=== PATIENT | male | born 1985 | race Caucasian/White ===

== ENCOUNTER 2016-12-12 12:06 | Emergency (ER) | payer BC ==
--- NOTE | 2016-12-12 14:17 | RAD ---
Indication: Foreign body. 2 views of the left forearm demonstrates a radiopaque foreign body in the distal radial aspect of the forearm. IMPRESSION: Radiopaque foreign body in the distal radial aspect of the forearm.
[2016-12-12] MEDS: Morphine INJ* 4 MG/ML 1 ML SYRINGE IM ONE ×2 (15:00→15:02)
[2016-12-12 15:33] VITALS: BP 125/79
--- NOTE | 2016-12-20 09:27 | ED ---
Upper Extremity Pain - HPI Summary HPI Summary: Patient arrives to ED after puncturing his left forearm with a nail from a nail gun. The wound is not bleeding and entry point is less than 1mm. Nail is inside forearm and tip of nail is felt on the dorsum of the arm. He denies pain , is able to feel his fingertips and denies color or temperature changes. Tetanus >10 years old. Denies other injuries. Denies blood thinners. - History of Current Complaint Chief Complaint: EDExtremityUpper Stated Complaint: NAIL GUN INJURY FROM WORK Time Seen by Provider: 12/12/16 12:22 Hx Obtained From: Patient Mechanism Of Injury: Penetrating Trauma - nail from nail gun Timing: Constant Severity Initially: Mild Severity Currently: Mild Pain Location: Forearm Character: Sharp Aggravating Factor(s): Internal/External Rotation Alleviating Factor(s): Nothing Associated Signs & Symptoms: Positive: Negative Related History: Dominant Hand Right - Allergies/Home Medications Allergies/Adverse Reactions: Allergies Allergy/AdvReac Type Severity Reaction Status Date / Time No Known Allergies Allergy Verified 10/13/12 18:41 PMH/Surg Hx/FS Hx/Imm Hx Previously Healthy: Yes Infectious Disease History: No Infectious Disease History: Denies: Traveled Outside the [place] in Last 30 Days - Social History Occupation: Employed Full-time Lives: Alone Alcohol Use: Occasionally Hx Substance Use: Yes Substance Use Type: Reports: Marijuana Hx Tobacco Use: Yes Smoking Status (MU): Light Every Day Tobacco Smoker Do You Chew or Dip Tobacco: No Have You Chewed or Dipped Tobacco in the LAST YEAR: No Review of Systems Constitutional: Negative Cardiovascular: Negative Respiratory: Negative Positive: no symptoms reported, see HPI Musculoskeletal: Negative Positive: Other - small round <1mm puncture wound without bleeding or ecchymosis Neurological: Negative All Other Systems Reviewed And Are Negative: Yes Physical Exam Triage Information Reviewed: Yes Vital Signs On Initial Exam: Initial Vitals Temp Pulse Resp BP Pulse Ox 97.9 F 58 18 138/84 100 12/12/16 12:16 12/12/16 12:16 12/12/16 12:16 12/12/16 12:16 12/12/16 12:16 Vital Signs Reviewed: Yes Appearance: Positive: Well-Appearing, Well-Nourished Skin: Positive: Other - small puncture wound Eyes: Positive: Normal, DARRYL Neck: Positive: Supple, No Lymphadenopathy Respiratory/Lung Sounds: Positive: Clear to Auscultation, Breath Sounds Present Cardiovascular: Positive: Normal Musculoskeletal: Positive: Normal, Strength/ROM Intact Neurological: Positive: Normal, Sensory/Motor Intact, Alert, Oriented to Person Place, Time, Speech Normal Psychiatric: Positive: Normal Procedures - Laceration/Wound Repair 1 Location: upper extremity Description: Stellate Anesthesia: 1.0%, Lido Betadine Prep?: No Laceration/Wound Explored: clean Closure: Single Layer Suture Type: Nylon Number of Sutures: 2 Layer Closure?: No Sterile Dressing Applied?: No Diagnostics - Vital Signs Vital Signs Temp Pulse Resp BP Pulse Ox 12/12/16 15:31 97.7 F 60 15 125/79 12/12/16 14:00 97.9 F 61 15 129/76 99 12/12/16 12:16 97.9 F 58 18 138/84 100 - Laboratory Lab Statement: Any lab studies that have been ordered have been reviewed, and results considered in the medical decision making process. Course/Dx - Course Course Of Treatment: xray shows foreign body in forearm. patient able to move fingers and rotate arm without complications. small .5cm linear incision made with 15 blade approximately .2cm deep. tweezers used to dislodge FB. patient tolerated well. 2 sutures placed. Suture removal in 7 days. - Diagnoses Differential Diagnosis/HQI/PQRI: Positive: Laceration, Other - puncture wound, FB removal Provider Diagnoses: Foreign body forearm Discharge - Discharge Plan Condition: Stable Disposition: HOME Prescriptions: oxyCODONE/Acetamin 5/325 MG* [Percocet 5/325 TAB*] 1 tab PO Q6H PRN #4 tab MDD 4 PRN Reason: Pain Patient Education Materials: Care For Your Stitches (ED) Referrals: No Primary Care Phys,NOPCP [Primary Care Provider] - Additional Instructions: Take ibuprofen 600mg three times daily for pain If pain is not well controlled, take the percoset as needed. If you develop numbness, tingling or temperature change in the arm, come back to the ED. Stitches out in 7 days. Images - Images Full Body (No Head): 1 - small < 1mm puncture wound with small nail tip felt under the skin
== END 2016-12-12 15:31 | disposition home or self-care (01) ==
LOC: ED 12:06
DX: S50.852A Superficial foreign body of left forearm, initial encounter (principal); W29.4XXA Contact with nail gun, initial encounter; Y93.9 Activity, unspecified; Y92.9 Unspecified place or not applicable
CPT/HCPCS: 90715; 96372; 99282; J2270

== ENCOUNTER → 2016-12-13 17:17 | Emergency (ER) | payer BC ==
[~2016-12-13 17:17] MED LIST: Tetan/Diph/Pertus SYR(Tdap)* 0.5 ML SYR(BOOSTRIX) use SYR IM ONE
[2016-12-13 17:49] VITALS: BP 140/76
--- NOTE | 2016-12-13 17:59 | ED ---
Medical Screening - HPI Summary HPI Summary: Patient presents for a tetanus shot for a wound he received yesterday. He presented at this ED and was treated, but the tetanus was not ordered at that time before he left. No other complaints. - History of Current Complaint Chief Complaint: EDGeneral Stated Complaint: TETANUS Time Seen by Provider: 12/13/16 17:34 Associated Signs and Symptoms: Negative PMH/Surg Hx/FS Hx/Imm Hx Previously Healthy: Yes Infectious Disease History: Denies: Traveled Outside the [place] in Last 30 Days - Social History Occupation: Employed Full-time Lives: With Family Alcohol Use: Occasionally Substance Use Type: Reports: Marijuana Smoking Status (MU): Light Every Day Tobacco Smoker Cessation Counseling: Patient Advised to Stop Review of Systems All Other Systems Reviewed And Are Negative: Yes Physical Exam - Summary Physical Exam Summary: No physical exam performed. Triage Information Reviewed: Yes Vital Signs On Initial Exam: Initial Vitals Temp Pulse Resp BP Pulse Ox 97.9 F 66 16 140/76 97 12/13/16 17:48 12/13/16 17:48 12/13/16 17:48 12/13/16 17:48 12/13/16 17:48 Vital Signs Reviewed: Yes Diagnostics - Vital Signs Vital Signs Temp Pulse Resp BP Pulse Ox 12/13/16 17:48 97.9 F 66 16 140/76 97 - Laboratory Lab Statement: Any lab studies that have been ordered have been reviewed, and results considered in the medical decision making process. Course/Dx - Diagnoses Provider Diagnoses: Tetanus toxoid inoculation Discharge - Discharge Plan Condition: Stable Disposition: HOME
== END | disposition home or self-care (01) ==
LOC: ED 17:17
DX: Z09 Encounter for follow-up examination after completed treatment for conditions other than malignant neoplasm (principal)
CPT/HCPCS: 90471; 90715; 99282